=== PATIENT | male | born 1955 | race Caucasian/White ===

== ENCOUNTER 2017-01-10 15:53 | Inpatient (IN) | payer OTHER ==
[~2017-01-10] VITALS: Ht 188 cm; Wt 113.5 kg
[2017-01-10] MEDS ORDERED: SODIUM CHLORIDE FLUSH 10ML SYR IVF ONE (16:00)
[2017-01-10] MEDS ORDERED: SODIUM CHLORIDE 0.9% 1,000ML IVBOLUS ONE (16:00)
[2017-01-10] MEDS ORDERED: PLEASE ENTER ALLERGIES MC SCH ×2 (16:30)
[2017-01-10] MEDS ORDERED: PLEASE ENTER HEIGHT AND WEIGHT MC SCH (16:30)
[2017-01-10 16:37] LABS: HEMATOCRIT 47.5 % (39.2-51.8); HEMOGLOBIN 16.1 g/dL (13.7-18.0); WHITE BLOOD COUNT 13.2 x10^3/uL (3.4-10)
[2017-01-10 16:38] LABS: ASPARTATE AMINO TRANSFERASE 90 U/L (15-37); BLOOD UREA NITROGEN 14 mg/dL (7-18)
[2017-01-10] MEDS ORDERED: LORazepam 2 MG/ML, 1ML ONE ×3 (16:53→20:01)
[2017-01-10] MEDS ORDERED: LORazepam 2 MG/ML, 1ML IVPush ONE ×2 (17:00→18:30)
[2017-01-10] MEDS ORDERED: THIAMINE 100 MG in SODIUM CHLORIDE 0.9% 50 ML IV SCH (17:00)
[2017-01-10] MEDS ORDERED: DOCUSATE 100 MG CAPSULE PO PRN (19:30)
[2017-01-10] MEDS ORDERED: ONDANSETRON 2MG/ML, 2ML IVPush PRN (19:30)
[2017-01-10] MEDS ORDERED: LORazepam 2 MG/ML, 1ML IV PRN ×2 (19:30)
[2017-01-10] MEDS ORDERED: LORazepam 0.5MG TABLET PO PRN (19:30)
[2017-01-10] MEDS ORDERED: morphine SULFATE 10 MG/ML, 1ML IVPush PRN (19:30)
[2017-01-10] MEDS ORDERED: POLYETHYLENE GLYCOL 17 GM PACKET PO PRN (19:30)
[2017-01-10] MEDS: LORazepam 2 MG/ML, 1ML IV PRN (20:05)
[2017-01-10 20:54] VITALS: BP 150/93
[2017-01-10] MEDS: FAMOTIDINE 20 MG TABLET PO SCH (22:21)
[2017-01-10] MEDS: ENOXAPARIN 40 MG/0.4 ML SQ SCH (22:21)
[2017-01-10] MEDS: SODIUM CHLORIDE 0.9% 1,000 ML IV SCH (22:22)
[2017-01-10] MEDS: OXYcodone IR 5MG TABLET PO PRN (22:22)
[2017-01-10] MEDS: INSULIN ASPART 100 UNITS/ML, PEN SQ-INSULIN SCH (22:38)
[2017-01-10] MEDS: LORazepam 1MG TABLET PO PRN (23:58)
[2017-01-11 02:00] VITALS: BP 142/84
[2017-01-11 05:43] LABS: HEMATOCRIT 38.7 % (39.2-51.8); HEMOGLOBIN 13.3 g/dL (13.7-18.0); WHITE BLOOD COUNT 5.1 x10^3/uL (3.4-10)
[2017-01-11] MEDS: SODIUM CHLORIDE 0.9% 1,000 ML IV SCH (05:50)
[2017-01-11 05:55] LABS: ASPARTATE AMINO TRANSFERASE 60 U/L (15-37); BLOOD UREA NITROGEN 14 mg/dL (7-18)
[2017-01-11 07:08] VITALS: BP 161/95
[2017-01-11] MEDS ORDERED: ARTIFICIAL TEARS OPHTH SOLN 15ML EACHEYE PRN (08:00)
[2017-01-11] MEDS ORDERED: SENNA/DOCUSATE TABLET PO SCH (09:00)
[2017-01-11] MEDS: INSULIN ASPART 100 UNITS/ML, PEN SQ-INSULIN SCH ×4 (09:03→21:00)
[2017-01-11] MEDS: MULTIVITAMINS/MINERALS TABLET PO SCH (09:04)
[2017-01-11] MEDS: THIAMINE 100MG TABLET PO SCH (09:04)
[2017-01-11] MEDS: FOLIC ACID 1 MG TABLET PO SCH (09:04)
[2017-01-11] MEDS: FAMOTIDINE 20 MG TABLET PO SCH ×2 (09:04→21:43)
[2017-01-11] MEDS: LORazepam 1MG TABLET PO PRN ×3 (09:30→16:24)
[2017-01-11] MEDS: CHLORDIAZEPOXIDE 10 MG CAPSULE PO SCH ×4 (09:31→21:43)
[2017-01-11 12:55] VITALS: BP 154/91
[2017-01-11 20:00] VITALS: BP 154/98
[2017-01-11] MEDS: OXYcodone IR 5MG TABLET PO PRN (21:43)
[2017-01-11] MEDS: ENOXAPARIN 40 MG/0.4 ML SQ SCH (21:43)
[2017-01-12] MEDS: LORazepam 2 MG/ML, 1ML IV PRN (00:09)
[2017-01-12] MEDS: LORazepam 1MG TABLET PO PRN ×4 (00:39→22:25)
[2017-01-12 02:14] VITALS: BP 160/92
[2017-01-12] MEDS: CHLORDIAZEPOXIDE 10 MG CAPSULE PO SCH ×4 (05:53→20:13)
[2017-01-12 06:05] LABS: BLOOD UREA NITROGEN 11 mg/dL (7-18)
[2017-01-12 06:09] LABS: ASPARTATE AMINO TRANSFERASE 71 U/L (15-37)
[2017-01-12] MEDS: INSULIN ASPART 100 UNITS/ML, PEN SQ-INSULIN SCH ×4 (07:00→20:14)
[2017-01-12 08:46] VITALS: BP 134/84
[2017-01-12] MEDS: FOLIC ACID 1 MG TABLET PO SCH (09:26)
[2017-01-12] MEDS: FAMOTIDINE 20 MG TABLET PO SCH ×2 (09:26→20:13)
[2017-01-12] MEDS: THIAMINE 100MG TABLET PO SCH (09:26)
[2017-01-12] MEDS: SENNA/DOCUSATE TABLET PO SCH (09:26)
[2017-01-12] MEDS: MULTIVITAMINS/MINERALS TABLET PO SCH (09:26)
[2017-01-12] MEDS: POTASSIUM CHLORIDE 20 MEQ TAB.ER.PRT PO SCH ×2 (09:33→16:53)
[2017-01-12] MEDS: HYDROcodone/APAP 5/325 TABLET PO PRN ×3 (09:33→22:25)
[2017-01-12] MEDS: POTASSIUM CHLORIDE 20 MEQ, MAGNESIUM SULFATE 1 GM, FOLIC ACID 1 MG, THIAMINE 100 MG, MV... IV SCH (10:05)
[2017-01-12 13:58] VITALS: BP 148/90
[2017-01-12 18:54] VITALS: BP 147/84
[2017-01-12] MEDS: ENOXAPARIN 40 MG/0.4 ML SQ SCH (20:14)
[2017-01-13 02:20] VITALS: BP 160/93
[2017-01-13] MEDS: HYDROcodone/APAP 5/325 TABLET PO PRN ×4 (04:35→23:10)
[2017-01-13 05:06] LABS: BLOOD UREA NITROGEN 8 mg/dL (7-18)
[2017-01-13 05:09] LABS: ASPARTATE AMINO TRANSFERASE 73 U/L (15-37)
[2017-01-13] MEDS: CHLORDIAZEPOXIDE 10 MG CAPSULE PO SCH ×4 (05:52→20:46)
[2017-01-13] MEDS: INSULIN ASPART 100 UNITS/ML, PEN SQ-INSULIN SCH ×4 (07:00→20:16)
[2017-01-13 07:02] VITALS: BP 163/99
[2017-01-13 08:06] VITALS: BP 165/89
[2017-01-13] MEDS: POTASSIUM CHLORIDE 20 MEQ, MAGNESIUM SULFATE 1 GM, FOLIC ACID 1 MG, THIAMINE 100 MG, MV... IV SCH (08:30)
[2017-01-13] MEDS: SENNA/DOCUSATE TABLET PO SCH (09:00)
[2017-01-13] MEDS: FAMOTIDINE 20 MG TABLET PO SCH ×2 (11:07→20:46)
[2017-01-13] MEDS: FOLIC ACID 1 MG TABLET PO SCH (11:07)
[2017-01-13] MEDS: POTASSIUM CHLORIDE 20 MEQ TAB.ER.PRT PO SCH ×2 (11:07→16:57)
[2017-01-13] MEDS: THIAMINE 100MG TABLET PO SCH (11:07)
[2017-01-13] MEDS: LORazepam 1MG TABLET PO PRN (11:07)
[2017-01-13] MEDS: MULTIVITAMINS/MINERALS TABLET PO SCH (11:07)
[2017-01-13 14:30] VITALS: BP 140/90
[2017-01-13 18:46] VITALS: BP 173/98
[2017-01-13] MEDS ORDERED: POLYETHYLENE GLYCOL 17 GM PACKET PO PRN (20:00)
[2017-01-13] MEDS ORDERED: DOCUSATE 100 MG CAPSULE PO PRN (20:00)
[2017-01-13] MEDS ORDERED: ARTIFICIAL TEARS OPHTH SOLN 15ML EACHEYE PRN (20:00)
[2017-01-13] MEDS ORDERED: ONDANSETRON 2MG/ML, 2ML IVPush PRN (20:00)
[2017-01-13] MEDS ORDERED: ENOXAPARIN 40 MG/0.4 ML SQ SCH (20:00)
[2017-01-13] MEDS ORDERED: LORazepam 0.5MG TABLET PO PRN (20:00)
[2017-01-13] MEDS ORDERED: LORazepam 2 MG/ML, 1ML IV PRN (20:00)
[2017-01-14 03:05] VITALS: BP 162/101
[2017-01-14 05:00] LABS: BLOOD UREA NITROGEN 9 mg/dL (7-18)
[2017-01-14] MEDS: HYDROcodone/APAP 5/325 TABLET PO PRN ×2 (05:26→11:48)
[2017-01-14] MEDS: INSULIN ASPART 100 UNITS/ML, PEN SQ-INSULIN SCH ×2 (07:00→11:00)
[2017-01-14 07:30] VITALS: BP 150/95
[2017-01-14] MEDS: FAMOTIDINE 20 MG TABLET PO SCH (08:03)
[2017-01-14] MEDS: CHLORDIAZEPOXIDE 10 MG CAPSULE PO SCH (08:03)
[2017-01-14] MEDS: POTASSIUM CHLORIDE 20 MEQ TAB.ER.PRT PO SCH (08:03)
[2017-01-14] MEDS: MULTIVITAMINS/MINERALS TABLET PO SCH (08:03)
[2017-01-14] MEDS: FOLIC ACID 1 MG TABLET PO SCH (08:03)
[2017-01-14] MEDS: THIAMINE 100MG TABLET PO SCH (08:03)
[2017-01-14] MEDS ORDERED: SENNA/DOCUSATE TABLET PO SCH (09:00)
[2017-01-14] MEDS ORDERED: FOLI-17 PO (11:40)
[2017-01-14] MEDS ORDERED: MULT-484 PO (11:40)
[2017-01-14] MEDS ORDERED: THIA100T6 PO (11:40)
[2017-01-14] MEDS ORDERED: BENA10TA2 PO (11:40)
[2017-01-14] MEDS ORDERED: METF500T PO (11:40)
[2017-01-14] MEDS ORDERED: metFORMIN 500 MG TABLET PO SCH (17:00)
[2017-01-15] MEDS ORDERED: BENAZEPRIL 10 MG TABLET PO SCH (09:00)
== END 2017-01-14 13:19 | disposition home or self-care (01) | DRG 895 ==
LOC: ED 16:51 → SUATTDRO 19:14 → EDIP 19:23 → 4WST 20:37 → DCLOUNGE 01-14 13:05
PROVIDERS: ADMIT Family Medicine; ATTEND Internal Medicine
PROC: HZ2ZZZZ Detoxification Services for Substance Abuse Treatment (ICD-10-PCS; principal; 2017-01-10)
PROC: HZ34ZZZ Individual Counseling for Substance Abuse Treatment, Interpersonal (ICD-10-PCS; 2017-01-10)
DX: F10.239 Alcohol dependence with withdrawal, unspecified (principal); R65.10 Systemic inflammatory response syndrome (SIRS) of non-infectious origin without acute organ dysfunction; E44.0 Moderate protein-calorie malnutrition; R17 Unspecified jaundice; E87.1 Hypo-osmolality and hyponatremia; I10 Essential (primary) hypertension; E11.9 Type 2 diabetes mellitus without complications; E78.5 Hyperlipidemia, unspecified; E78.00 Pure hypercholesterolemia, unspecified; G89.29 Other chronic pain; Z66 Do not resuscitate; M54.9 Dorsalgia, unspecified; R74.8 Abnormal levels of other serum enzymes; Z79.899 Other long term (current) drug therapy; Z88.0 Allergy status to penicillin; Z71.41 Alcohol abuse counseling and surveillance of alcoholic
CPT/HCPCS: 36415; 80048; 80053; 81003; 82040; 82962; 83036; 83605; 83735; 85025; 96374; 96376; J1650; J1815; J3411; J3475; J3480; J7042; J2060; J7030

== ENCOUNTER 2020-07-10 11:17 | Emergency (ER) | payer BC, MEDICARE ==
[~2020-07-10] VITALS: Ht 188 cm; Wt 115.6 kg
[~2020-07-10 11:17] MED LIST: BENA10TA59 PO; FOLI1TAB32 PO; METF500T PO; MULT-484 PO; THIA100T67 PO
--- NOTE | 2020-07-10 11:28 | NUR ---
EKG DONE IN TRIAGE
--- NOTE | 2020-07-10 11:54 | NUR ---
first contact with pt. pt's friend brought him here d/t drowsy. pt's aox4. pt has hx of etoh abuse. pt denies current etoh us. pt stated "i took percocet today." poor historian. all monitors in place. call light within reach. ekg done at bedside. warm blanket given.
--- NOTE | 2020-07-10 11:56 | NUR ---
provider at bedside to assess. pt in bed with no signs or symptoms of acute distress noted respiraitons even and unlabored satting well on 2l/min via nc, on pulp beater with bed rails up bilaterally and call light on bed. responding appropriately but slowly, denies pain at thisd time.
[2020-07-10] MEDS ORDERED: CEFTRIAXONE 1,000 MG IM ONE (12:30)
[2020-07-10 12:31] LABS: BASOPHILS % (AUTO) 1 % (0-1); EOSINOPHILS % (AUTO) 5 % (1-7); LYMPHOCYTES % (AUTO) 15 % (22-44); MEAN CORPUSCULAR HEMOGLOBIN 28.6 pg (27.5-34.5); MEAN CORPUSCULAR HGB CONC 34.4 g/dL (33.2-36.2); MEAN PLATELET VOLUME 6.5 fL (7.4-10.4); MONOCYTES % (AUTO) 9 % (2-9); NEUTROPHILS % (AUTO) 71 % (42-75); PLATELET COUNT 178 x10^3/uL (130-400); RED BLOOD COUNT 4.18 x10^6/uL (4.38-5.82); RED CELL DISTRIBUTION WIDTH 14.4 % (9.4-14.8)
[2020-07-10 12:33] LABS: MD NO
[2020-07-10 12:34] LABS: CALCIUM 9.6 mg/dL (8.5-10.1); CHLORIDE 108 mmol/L (98-107)
[2020-07-10 12:40] LABS: ALANINE AMINOTRANSFERASE 18 U/L (12-78); ALKALINE PHOSPHATASE 114 U/L (45-117); ANION GAP 7 mmol/L (5-15); BILIRUBIN,TOTAL 1.4 mg/dL (0.2-1.0); CREATININE 1.22 mg/dL (0.7-1.3); TOTAL PROTEIN 7.9 g/dL (6.4-8.2)
--- NOTE | 2020-07-10 13:11 | NUR ---
urinal at bedside. pt aware of urine sample.
--- NOTE | 2020-07-10 13:33 | NUR ---
pt attempted to provide urine sample. no success.
[2020-07-10] MEDS ORDERED: NALOXONE 0.4 MG/ML, 1ML ONE (13:51)
[2020-07-10 13:56] VITALS: BP 132/85
--- NOTE | 2020-07-10 13:56 | NUR ---
pt medicated per emar. pt tolerated well.
[2020-07-10] MEDS ORDERED: NALOXONE 0.4 MG/ML, 1ML IVPush ONE (14:00)
[2020-07-10] MEDS ORDERED: NALOXONE 0.4 MG/ML, 1ML IM ONE (14:00)
--- NOTE | 2020-07-10 14:03 | NUR ---
after med given, pt more alert and speech more clear. pa notified.
--- NOTE | 2020-07-10 14:20 | NUR ---
Patient given discharge instructions and they have confirmed that they understand the instructions. Patient ambulatory with steady gait.
== END 2020-07-10 14:21 | disposition home or self-care (01) ==
LOC: ED 14:05
DX: F10.229 Alcohol dependence with intoxication, unspecified (principal); R41.82 Altered mental status, unspecified; R94.31 Abnormal electrocardiogram [ECG] [EKG]; Y90.0 Blood alcohol level of less than 20 mg/100 ml
CPT/HCPCS: 36415; 71045; 80053; 80320; 82962; 85025; 93005; 96372; 99285; J0696; J2310; G0480